=== PATIENT | male | born 1975 | race Caucasian/White ===

== ENCOUNTER 2017-07-15 16:00 | Inpatient (IN) | payer MEDICAID, OTHER ==
[~2017-07-15] VITALS: Ht 182.9 cm; Wt 72.6 kg
[~2017-07-15 16:00] MED LIST: FLUC100T PO; Glipizide PO; Lisinopril PO; Metformin Hcl PO
[2017-07-15] MEDS ORDERED: CEFEPIME HCL 2 G in IV DEXTROSE 5% 100 ML IV ONE (16:30)
[2017-07-15] MEDS ORDERED: VANCOMYCIN IV 1,000 MG in IV DEXTROSE 5% 250 ML IV ONE (16:30)
[2017-07-15] MEDS ORDERED: ONDANSETRON 4 MG/2 ML VIAL IV ONE (16:30)
[2017-07-15] MEDS ORDERED: METRONIDAZOLE 500 MG/NS 100 ML PIGGYBACK IV ONE (16:30)
[2017-07-15] MEDS ORDERED: IV NORMAL SALINE 1000 ML BAG IV ONE ×4 (16:30→17:45)
[2017-07-15] MEDS ORDERED: MORPHINE SULFATE 2 MG/1 ML DISP.SYRIN IV ONE (16:30)
[2017-07-15] MEDS ORDERED: ONDANSETRON 4 MG/2 ML VIAL ONE (16:41)
[2017-07-15] MEDS ORDERED: METRONIDAZOLE 500 MG/NS 100ML 100 ML IV ONE ×2 (16:41→23:47)
[2017-07-15] MEDS ORDERED: MORPHINE SULFATE 4 MG/1 ML DISP.SYRIN ONE (16:41)
[2017-07-15] MEDS ORDERED: CEFEPIME HCL 1 G VIAL ONE (16:41)
[2017-07-15] MEDS ORDERED: VANCOMYCIN IV 200 ML ONE (16:42)
[2017-07-15] MEDS ORDERED: ATOR20TA PO (16:56)
[2017-07-15] MEDS ORDERED: MULT-213 PO (16:56)
[2017-07-15] MEDS ORDERED: ASCO500T10 PO (16:56)
[2017-07-15] MEDS ORDERED: GLUC1KIT IJ (16:56)
[2017-07-15] MEDS ORDERED: POLY15DR57 EACHEYE (16:56)
[2017-07-15] MEDS ORDERED: DEXT38GE12 PO (16:56)
[2017-07-15] MEDS ORDERED: INSU100I26 SQ (16:56)
[2017-07-15] MEDS ORDERED: ACET325T53 PO (16:56)
[2017-07-15] MEDS ORDERED: SULF1TAB48 PO (16:56)
[2017-07-15] MEDS ORDERED: METF500T6 PO (16:56)
[2017-07-15] MEDS ORDERED: ALOG25TA PO (16:56)
[2017-07-15] MEDS ORDERED: SILV10PO2 MC (16:56)
[2017-07-15] MEDS ORDERED: BLOO-360 IN (16:56)
[2017-07-15] MEDS ORDERED: GABA-534 PO (16:56)
[2017-07-15] MEDS ORDERED: ONDA4TAB10 PO (16:56)
[2017-07-15 17:13] LABS: BASOPHILS # (AUTO) 0.1 K/uL (0.0-8.0); BASOPHILS % (AUTO) 0.8 % (0.0-2.0); EOSINOPHILS # (AUTO) 0.2 K/uL (0.0-0.7); EOSINOPHILS % (AUTO) 0.8 % (0.0-7.0); HEMATOCRIT 36.4 % (36.7-47.1); HEMOGLOBIN 12.2 g/dL (12.5-16.3); LYMPHOCYTES # (AUTO) 2.4 K/uL (20.0-40.0); LYMPHOCYTES % (AUTO) 13.4 % (20.5-51.5); MEAN CORPUSCULAR HEMOGLOBIN 28.7 uug (23.8-33.4); MEAN CORPUSCULAR HGB CONC 33 g/dL (32.5-36.3); MEAN CORPUSCULAR VOLUME 85.7 fL (73.0-96.2); MONOCYTES # (AUTO) 0.8 K/uL (2.0-10.0); MONOCYTES % (AUTO) 4.6 % (0.0-11.0); NEUTROPHILS # (AUTO) 14.6 K/uL (1.8-8.9); NEUTROPHILS % (AUTO) 80.4 % (38.5-71.5); PLATELET COUNT (AUTO) 399 K/uL (152-348); RED BLOOD CELL COUNT(AUTO) 4.24 MIL/uL (4.06-5.63); WHITE BLOOD COUNT (AUTO) 18.2 K/uL (3.6-10.2)
[2017-07-15 17:29] LABS: BILIRUBIN,DIRECT 0.1 mg/dL (0.0-0.2); BILIRUBIN,TOTAL 0.3 mg/dL (0.2-1.0); CREATININE 0.8 mg/dL (0.6-1.3); POTASSIUM 3.8 mmol/L (3.5-5.1); TOTAL PROTEIN, SERUM 8.3 g/dL (6.4-8.2)
--- NOTE | 2017-07-15 18:23 | NUR ---
CALLED DR. Kayla DINH FOR SURGICAL CONSULT
--- NOTE | 2017-07-15 18:37 | NUR ---
CALLED DR. WONG FOR SURGICAL CONSULT.
--- NOTE | 2017-07-15 18:42 | NUR ---
NEREIDA RAI CALLED BACK TALKING TO ER MD FOR SURGICAL CONSULT
--- NOTE | 2017-07-15 19:33 | NUR ---
hands of report given to leila godoy
--- NOTE | 2017-07-15 21:40 | NUR ---
Passed report to Beatris MORGAN CCU.
[2017-07-15 22:00] VITALS: BP 96/58
[2017-07-15] MEDS ORDERED: ACETAMINOPHEN 650 MG SUPP.RECT RC PRN (23:15)
[2017-07-15] MEDS: MORPHINE SULFATE 4 MG/1 ML DISP.SYRIN IV PRN (23:36)
[2017-07-15] MEDS ORDERED: PIPERACILLIN SODIUM/TAZO 3.375 GM VIAL ONE (23:46)
[2017-07-16] VITALS (8 sets, daily range): BP systolic 83–103; BP diastolic 42–63
[2017-07-16] MEDS: PIPERACILLIN/TAZOBACTAM/D5W 50 ML IV SCH ×4 (00:40→17:53)
[2017-07-16] MEDS ORDERED: PIPERACILLIN SODIUM/TAZO 3.375 GM VIAL ONE (00:58)
[2017-07-16] MEDS ORDERED: VANCOMYCIN 1000 MG VIAL ONE (00:58)
[2017-07-16] MEDS: POTASSIUM CHLORIDE 20 MEQ in IV D5/ 0.9% NACL 1,000 ML IV PRN ×2 (01:44→17:53)
[2017-07-16] MEDS ORDERED: VANCOMYCIN IV 1,000 MG in IV DEXTROSE 5% 250 ML IV ONE (03:00)
[2017-07-16] MEDS: METRONIDAZOLE 500 MG/NS 100ML 500 MG in PREMIXED 1 EACH IV SCH ×2 (05:18→14:48)
--- NOTE | 2017-07-16 06:00 | NUR ---
Patient refusing blood draw at this time. Will defer. As requested by patient, "later when I'm more awake"
--- NOTE | 2017-07-16 07:20 | NUR ---
report received from EDDIE Gutiérrez. patient 42 yr old male was admitted 07/15/17 for gangrenous right foot as LOBO patient. is full code despite POLST.. has hx of DKA. IV fluid D5NS plus 20meq kcl at 80ml/hr.. is NPO for possible surgery? Addendum: 07/16/17 at 0743 by JENNIFER MILLER RN Amended: Links added.
[2017-07-16] MEDS: FAMOTIDINE. 20 MG/2 ML VIAL IV SCH ×2 (08:16→21:09)
[2017-07-16] MEDS: MORPHINE SULFATE 4 MG/1 ML DISP.SYRIN IV PRN ×3 (08:17→21:15)
--- NOTE | 2017-07-16 08:17 | NUR ---
medicated for right foot pain scale /. blood drawn for routine Labs per labor utilization superintendent. Addendum: 07/16/17 at 0843 by JENNIFER MILLER RN Amended: Links added.
[2017-07-16 08:47] LABS: BASOPHILS % (AUTO) 0.3 % (0.0-2.0); EOSINOPHILS # (AUTO) 0.4 K/uL (0.0-0.7); EOSINOPHILS % (AUTO) 3.1 % (0.0-7.0); HEMATOCRIT 30.1 % (36.7-47.1); HEMOGLOBIN 10.3 g/dL (12.5-16.3); LYMPHOCYTES % (AUTO) 16.2 % (20.5-51.5); MEAN CORPUSCULAR HGB CONC 34 g/dL (32.5-36.3); MEAN CORPUSCULAR VOLUME 84.8 fL (73.0-96.2); NEUTROPHILS % (AUTO) 72.4 % (38.5-71.5); PLATELET COUNT (AUTO) 353 K/uL (152-348); RED BLOOD CELL COUNT(AUTO) 3.56 MIL/uL (4.06-5.63); WHITE BLOOD COUNT (AUTO) 12.4 K/uL (3.6-10.2)
[2017-07-16 09:04] LABS: ALANINE AMINOTRANSFERASE 12 U/L (16-63); ALKALINE PHOSPHATASE 168 U/L (50-136); ASPARTATE AMINOTRANSFERASE 10 U/L (15-37); BILIRUBIN,TOTAL 0.3 mg/dL (0.2-1.0); CARBON DIOXIDE 25 mmol/L (21-32); CHLORIDE 101 mmol/L (98-107); CREATININE 0.6 mg/dL (0.6-1.3); GLUCOSE 175 mg/dL (74-106); MAGNESIUM 1.7 mg/dL (1.8-2.4); PHOSPHOROUS 3.1 mg/dL (2.5-4.9); POTASSIUM 3.5 mmol/L (3.5-5.1); TOTAL PROTEIN, SERUM 6.7 g/dL (6.4-8.2); UREA NITROGEN, BLOOD 7 mg/dL (7-18)
--- NOTE | 2017-07-16 10:35 | NUR ---
seen by dr dahl. consent for amputation of th right toe signed by patient himself Addendum: 07/16/17 at 1035 by JENNIFER MILLER RN Amended: Links added.
[2017-07-16] MEDS ORDERED: FENTANYL CITRATE 100 MCG/2 ML AMPUL ONE (10:49)
[2017-07-16] MEDS ORDERED: MIDAZOLAM HCL 2 MG/2 ML VIAL ONE (10:49)
[2017-07-16] MEDS ORDERED: POLYMYXIN B SULFATE 500,000 UNITS, BACITRACIN 50,000 UNITS, NORMAL SALINE 20 ML MC ONE ×3 (11:00)
--- NOTE | 2017-07-16 11:10 | NUR ---
taken for OR for amputation of the right foot Addendum: 07/16/17 at 1110 by JENNIFER MILLER RN Amended: Links added.
[2017-07-16] MEDS ORDERED: VANCOMYCIN IV 1,250 MG in IV DEXTROSE 5% 500 ML IV SCH ×3 (12:00→23:00)
--- NOTE | 2017-07-16 13:39 | NUR ---
back to room, from PACU. s/p amputation of right foot. right leg stump all covered with dressing Addendum: 07/16/17 at 1340 by JENNFIER MILLER RN Amended: Links added.
[2017-07-16] MEDS ORDERED: SEVOFLURANE 250 ML BOTTLE IH ONE (14:20)
[2017-07-16] MEDS ORDERED: DEXAMETHASONE SOD PHOSPHATE 4 MG INJ IV ONE (14:20)
[2017-07-16] MEDS ORDERED: PROPOFOL 200 MG/20 ML BOTTLE IV ONE (14:20)
[2017-07-16] MEDS ORDERED: LIDOCAINE HCL 2% 20 ML VIAL MC ONE (14:20)
[2017-07-16] MEDS ORDERED: IV LACTATED RINGERS SOLUTION 1,000 ML BAG IV ONE (14:20)
[2017-07-16] MEDS ORDERED: ONDANSETRON 4 MG/2 ML VIAL IV ONE (14:20)
[2017-07-16] MEDS ORDERED: SILVER SULFADIAZINE 1% CREAM 25 GM TUBE TP SCH (15:15)
--- NOTE | 2017-07-16 15:39 | NUR ---
CLINICAL PHARMACY NOTE: VANCOMYCIN DOSING O: To start vancomycin dosing on 42 y/o male for osteomyelitis (waiting for MD note) S: temp 98.5 BUN 7 Scr 0.6 WBC 12.4 ht 182.8 cm wt 76.6 kg Plan/assessment Patient received vanco 1gm in ED on 07/15 at 1830 & also [facility] pharmacist ordered vanco 1gm x1 on 07/16 at 0300. Will start vanco 1250mg IV q8hr for predicted vanco trough level of 15 mcg/ml at steady state. 1st dose today at 1400. Plan to order vanco trough level before 4th dose (ordered for 07/17 at 1330). Will continue to follow.
--- NOTE | 2017-07-16 17:05 | NUR ---
complete bed bath given. medicated for right foot stump pain scale 7/10 Addendum: 07/16/17 at 1708 by JENNIFER MILLER RN Amended: Links added.
--- NOTE | 2017-07-16 18:45 | NUR ---
report given to Amrik MORGAN Patient as Med surg Status. to room 225 Addendum: 07/16/17 at 1943 by JENNIFER MILLER RN Amended: Links added.
--- NOTE | 2017-07-16 19:45 | NUR ---
Patient in bed, awake, alert and verbally responsive. A/O x3. RLE elevated a pillow. Dressing on surgical wound clean, dry, intact, no discharges noted. Vitals signs taken and recorded. No signs of any acute respi. distress. Pain level of 8/10. Persistent assessment done. Placed call lignt in reach. Will continue to monitor the patient.
[2017-07-16] MEDS: VANCOMYCIN IV 1,250 MG in IV DEXTROSE 5% 500 ML IV SCH (22:07)
[2017-07-17] MEDS: PIPERACILLIN/TAZOBACTAM/D5W 50 ML IV SCH ×4 (00:28→17:13)
[2017-07-17] MEDS: MORPHINE SULFATE 4 MG/1 ML DISP.SYRIN IV PRN ×5 (00:30→23:25)
[2017-07-17 05:40] VITALS: BP_SYST 1
[2017-07-17] MEDS: VANCOMYCIN IV 1,250 MG in IV DEXTROSE 5% 500 ML IV SCH (06:27)
--- NOTE | 2017-07-17 06:53 | NUR ---
Patient slept intermittently complaining of pain. Medicated with morphine injection. Vital signs taken and recorded. No signs of any acute respi. distress. Kept clean, dry and comfortable. All needs attended to. Will endorse to Am shift nurse.
--- NOTE | 2017-07-17 07:25 | NUR ---
Patient in bed, awake, alert and verbally responsive. A/O x3. RLE elevated a pillow. Dressing on surgical wound clean, dry, intact, no discharges noted. Vitals signs NORMAL No signs of any acute respiratory distress. Placed call light in reach. Will continue to monitor the patient.
[2017-07-17] MEDS: FAMOTIDINE. 20 MG/2 ML VIAL IV SCH (08:03)
[2017-07-17 08:27] LABS: THYROID STIMULATING HORMONE 0.673 mIU/mL (0.358-3.740)
[2017-07-17 08:28] LABS: BASOPHILS # (AUTO) 0.1 K/uL (0.0-8.0); BASOPHILS % (AUTO) 0.7 % (0.0-2.0); EOSINOPHILS # (AUTO) 0.1 K/uL (0.0-0.7); EOSINOPHILS % (AUTO) 1.3 % (0.0-7.0); HEMATOCRIT 32.6 % (36.7-47.1); LYMPHOCYTES # (AUTO) 2.3 K/uL (20.0-40.0); LYMPHOCYTES % (AUTO) 23.6 % (20.5-51.5); MEAN CORPUSCULAR HEMOGLOBIN 28.9 uug (23.8-33.4); MEAN CORPUSCULAR HGB CONC 34 g/dL (32.5-36.3); MEAN CORPUSCULAR VOLUME 85.5 fL (73.0-96.2); MONOCYTES # (AUTO) 0.9 K/uL (2.0-10.0); MONOCYTES % (AUTO) 8.8 % (0.0-11.0); NEUTROPHILS # (AUTO) 6.4 K/uL (1.8-8.9); NEUTROPHILS % (AUTO) 65.6 % (38.5-71.5); PLATELET COUNT (AUTO) 417 K/uL (152-348); RED BLOOD CELL COUNT(AUTO) 3.81 MIL/uL (4.06-5.63); WHITE BLOOD COUNT (AUTO) 9.8 K/uL (3.6-10.2)
[2017-07-17 08:44] LABS: BILIRUBIN,TOTAL 0.1 mg/dL (0.2-1.0); CREATININE 0.7 mg/dL (0.6-1.3); MAGNESIUM 1.8 mg/dL (1.8-2.4); PHOSPHOROUS 2.4 mg/dL (2.5-4.9); POTASSIUM 4.4 mmol/L (3.5-5.1); TOTAL PROTEIN, SERUM 6.7 g/dL (6.4-8.2)
[2017-07-17] MEDS ORDERED: ACETAMINOPHEN 325 MG TABLET PO PRN (09:00)
[2017-07-17 11:32] VITALS: BP 100/55
--- NOTE | 2017-07-17 14:09 | NUR ---
WOUND CARE CONSULT: PT PRESENTS WITH SACRAL SCARRING AND SURGICAL DRESSING TO RT LOWER EXTREMITY WHICH IS DRY AND INTACT. PT IS INDEPENDENT WITH BED MOBILITY AND SETH SCORE IS 17. FIRST STEP MATTRESS TO BE DCD. DISCUSSED SKIN PROTECTION WITH NURSING STAFF. WILL SEE PRN. DEFER TO SURGEON FOR SURGICAL SITE. MD IN AGREEMENT WITH PLAN OF CARE. Addendum: 07/17/17 at 1410 by JAY JAY CORBIN RN Amended: Links added.
[2017-07-17] MEDS: POTASSIUM CHLORIDE 20 MEQ in IV D5/ 0.9% NACL 1,000 ML IV PRN (15:19)
[2017-07-17] MEDS: VANCOMYCIN IV 1,500 MG in IV NORMAL SALINE 500 ML IV SCH ×2 (15:21→21:55)
[2017-07-17] MEDS ORDERED: NEUTRA PHOS PACKET PO ONE (15:30)
[2017-07-17 15:31] VITALS: BP 100/60
--- NOTE | 2017-07-17 16:05 | NUR ---
CLINICAL PHARMACY NOTE: VANCOMYCIN DOSING O: To continue vancomycin dosing on 42 y/o male for osteomyelitis S: temp 98.6 BUN 5 Scr 0.7 WBC 9.8 ht 182.8 cm wt 76.6 kg Vancomycin trough 10.8 Plan/assessment Since Vancomycin trough is under 15, will change dose to 1500mg IV every 7 hrs (first dose today at 1500) and draw trough by 4th dose(ordered for tomorrow at 1130) for expected trough around 17. Will monitor daily.
--- NOTE | 2017-07-17 19:25 | NUR ---
Pt AAOx4. Denies any pain or SOB. Not in acute distress. IV site on left FA intact and patent. IV fluid infusing. Safety measure initiated and call tavarez within reach.
--- NOTE | 2017-07-17 19:40 | NUR ---
Doctor Claire called with order to do wound culture on right foot stump. Order read back, verified and carried out.
[2017-07-17] MEDS: FAMOTIDINE 20 MG TABLET PO SCH (20:14)
[2017-07-17 20:38] VITALS: BP 100/57
--- NOTE | 2017-07-17 21:10 | NUR ---
Informed Doctor Raman regarding pt glucose level this morning. Doctor Raman with order to change IV fluids to NS at 80cc/hr. Order read back, verified and carried out.
[2017-07-17] MEDS ORDERED: IV NORMAL SALINE 100 ML BAG IV PRN (21:15)
[2017-07-18] MEDS ORDERED: DEXTROSE 50% 50 ML DISP.SYRIN IV PRN
[2017-07-18] MEDS: PIPERACILLIN/TAZOBACTAM/D5W 50 ML IV SCH ×4 (00:09→17:02)
[2017-07-18] MEDS: IV NS 1000 ML 1,000 ML IV PRN (00:35)
[2017-07-18] MEDS: MORPHINE SULFATE 4 MG/1 ML DISP.SYRIN IV PRN ×3 (03:15→22:16)
[2017-07-18] MEDS: VANCOMYCIN IV 1,500 MG in IV NORMAL SALINE 500 ML IV SCH ×3 (04:23→18:07)
--- NOTE | 2017-07-18 05:57 | NUR ---
AOx4. Morphine prn given per order for pain on right foot stump and helpful. Dressing on right foot stump remains intact. Denies any SOB. Not in acute distress. IV site on left FA intact and patent. IVF infusing. Safety measure maintained and call tavarez within reach.
[2017-07-18] MEDS: BLOOD SUGAR DIAGNOSTIC 1 EACH STRIP VI SCH ×4 (06:35→21:00)
[2017-07-18 06:38] LABS: CARBON DIOXIDE 30 mmol/L (21-32); CHLORIDE 103 mmol/L (98-107); CREATININE 0.6 mg/dL (0.6-1.3); GLUCOSE 135 mg/dL (74-106); PHOSPHOROUS 3.4 mg/dL (2.5-4.9); POTASSIUM 3.9 mmol/L (3.5-5.1); UREA NITROGEN, BLOOD 6 mg/dL (7-18)
[2017-07-18 06:44] VITALS: BP 104/64
[2017-07-18] MEDS: FAMOTIDINE 20 MG TABLET PO SCH ×2 (08:03→21:37)
[2017-07-18] MEDS: INSULIN REGULAR, HUMAN 300 UNIT/3 ML VIAL SQ PRN ×2 (10:57→17:00)
[2017-07-18 11:13] VITALS: BP 100/63
[2017-07-18 11:22] LABS: *BILIRUBIN,URIN NEGATIVE (NEGATIVE); *BLOOD, URINE NEGATIVE (NEGATIVE); *CLARITY,URINE CLEAR (CLEAR); *COLOR,URINE YELLOW (YELLOW); *KETONES,URINE NEGATIVE (NEGATIVE); *PROTEIN,URINE NEGATIVE (NEGATIVE); *UROBILINOGEN,URINE 0.2 E.U./dl (NORMAL); LEUKOCYTE ESTERASE ,URINE NEGATIVE (NEGATIVE); NITRITE, URINE NEGATIVE (NEGATIVE); PH,URINE 5.5 (5.0-8.0); UGLUCOSE NEGATIVE (NEGATIVE)
[2017-07-18 11:32] LABS: BACTERIA,URINE NONE SEEN /HPF (NONE SEEN); RBC,URINE 0-3 /HPF (0-3); SQUAMOUS EPITHELIAL CELL,UR FEW /HPF (NONE SEEN); WBC,URINE 0-3 /HPF (0-3)
--- NOTE | 2017-07-18 13:31 | NUR ---
CLINICAL PHARMACY NOTE: VANCOMYCIN DOSING O: To continue vancomycin dosing on 42 y/o male for osteomyelitis S: temp 97.9 BUN 6 Scr 0.6 WBC 9.8 (07/17) ht 182.8 cm wt 76.6 kg Vancomycin trough 17.7 Plan/assessment Since Vancomycin trough is within therapeutic range, will continue same dose of vanco 1500mg IV every 7 hrs. Next dose is due today at noon. Will monitor renal function. Will monitor daily.
--- NOTE | 2017-07-18 15:23 | NUR ---
Patient is 42 y/o male with pmh of DM with diabetic foot ulcer who presents with worsened foot ulcer , s/p foot amputation current wt is 165lb, BMI 22.4, amputation ideal body weight: Foot 1.5%= IBW amputation:175lb,pt is 94% IBW(amputation) kcal: 25-28 (cbw):3639-6309 kcal/kg protein:1.1-1.3 gm/k-97 gm/kg fluid:25-30 ml/k-2100ml/kg po intake is good, eating 75-100% of meals labs; BUN-6(L),GLUCOSE-135(H) was 355(h),poc-145(h),QCW6V-8.4(H) medication:vancomycin ivf, skin; surgical amputation right foot bowel sound present x1 nutrition diagnosis: altered nutrition labs related to DM,current clinical condition as evidenced by above labs spoke with the nurse, per RN diet has been change to standard [facility] diet. if blood sugar continue to tend up rec modify insulin regimen per MD/PharmD monitor:weight,po intake,new labs Addendum: 07/18/17 at [address] Amended: Links added.
[2017-07-18 15:24] VITALS: BP 105/67
[2017-07-18] MEDS: HYDROCODONE/APAP 5-325MG TABLET PO PRN (16:33)
[2017-07-18 20:00] VITALS: BP 109/70
[2017-07-19] MEDS: PIPERACILLIN/TAZOBACTAM/D5W 50 ML IV SCH ×4 (00:01→18:00)
[2017-07-19] MEDS: IV NS 1000 ML 1,000 ML IV PRN (00:01)
[2017-07-19] MEDS: VANCOMYCIN IV 1,500 MG in IV NORMAL SALINE 500 ML IV SCH ×4 (02:58→22:52)
[2017-07-19] MEDS: MORPHINE SULFATE 4 MG/1 ML DISP.SYRIN IV PRN ×3 (03:18→14:47)
[2017-07-19 04:51] VITALS: BP 137/84
[2017-07-19] MEDS: BLOOD SUGAR DIAGNOSTIC 1 EACH STRIP VI SCH ×4 (06:29→20:48)
[2017-07-19 06:30] LABS: BASOPHILS # (AUTO) 0.1 K/uL (0.0-8.0); BASOPHILS % (AUTO) 0.5 % (0.0-2.0); EOSINOPHILS # (AUTO) 0.2 K/uL (0.0-0.7); EOSINOPHILS % (AUTO) 1.4 % (0.0-7.0); HEMATOCRIT 35.3 % (36.7-47.1); HEMOGLOBIN 12.1 g/dL (12.5-16.3); LYMPHOCYTES # (AUTO) 2.8 K/uL (20.0-40.0); LYMPHOCYTES % (AUTO) 24.5 % (20.5-51.5); MEAN CORPUSCULAR HGB CONC 34 g/dL (32.5-36.3); MEAN CORPUSCULAR VOLUME 84.5 fL (73.0-96.2); MONOCYTES # (AUTO) 0.6 K/uL (2.0-10.0); MONOCYTES % (AUTO) 5.6 % (0.0-11.0); NEUTROPHILS # (AUTO) 7.6 K/uL (1.8-8.9); PLATELET COUNT (AUTO) 618 K/uL (152-348); RED BLOOD CELL COUNT(AUTO) 4.18 MIL/uL (4.06-5.63); WHITE BLOOD COUNT (AUTO) 11.2 K/uL (3.6-10.2)
[2017-07-19 06:34] LABS: CREATININE 0.7 mg/dL (0.6-1.3); MAGNESIUM 1.7 mg/dL (1.8-2.4); PHOSPHOROUS 3.5 mg/dL (2.5-4.9); POTASSIUM 3.2 mmol/L (3.5-5.1)
[2017-07-19] MEDS: INSULIN REGULAR, HUMAN 300 UNIT/3 ML VIAL SQ PRN ×5 (07:51→21:29)
[2017-07-19] MEDS: FAMOTIDINE 20 MG TABLET PO SCH ×2 (08:34→20:44)
[2017-07-19] MEDS: HYDROCODONE/APAP 5-325MG TABLET PO PRN ×2 (09:54→20:51)
--- NOTE | 2017-07-19 10:30 | NUR ---
PT SEEN BY DR WATKINS
[2017-07-19] MEDS ORDERED: POTASSIUM CHLORIDE 20 MEQ TAB.PRT.SR PO ONE (12:00)
[2017-07-19] MEDS ORDERED: MAGNESIUM OXIDE 400 MG TABLET PO ONE (12:00)
[2017-07-19 12:59] VITALS: BP 125/88
--- NOTE | 2017-07-19 15:00 | NUR ---
PT IS GRANT YELLING AT NURSING STAFF SAYING HE WANTS TO TALK TO THE JEANNA MOTHER AT BED SIDE MADE AWARE.
--- NOTE | 2017-07-19 15:19 | NUR ---
CLINICAL PHARMACY NOTE: VANCOMYCIN DOSING O: To continue vancomycin dosing on 42 y/o male for osteomyelitis S: temp 98.4 BUN 7 Scr 0.7 WBC 11.2 ht 182.8 cm wt 76.6 kg Vancomycin trough 17.7 Plan/assessment Will continue same dose of vanco 1500mg IV every 7 hrs. 9th dose is due tonight at 2300. Will monitor renal function. Will monitor daily.
--- NOTE | 2017-07-19 15:39 | NUR ---
PER NURSING VP [employer]ATE [employer]ELOPMENT SCOOBY, CHARGE NURSE MO, AND RN KIMBERLYN THEY SPOKE WITH AMANDA ON SPEAKER PHONE REGARDING THE AMPUTATED FOOT ,THEY BOTH SAID THEY DO NOT WANT ANY THING WITH AMPUTATED FOOT
[2017-07-19 15:57] VITALS: BP 131/82
[2017-07-20] VITALS (8 sets, daily range): BP systolic 114–132; BP diastolic 69–83
[2017-07-20] MEDS: PIPERACILLIN/TAZOBACTAM/D5W 50 ML IV SCH ×4 (00:20→17:00)
[2017-07-20] MEDS: HYDROCODONE/APAP 5-325MG TABLET PO PRN ×2 (03:28→16:51)
--- NOTE | 2017-07-20 05:44 | NUR ---
Pt slept intermittently throughout the night, and aware of NPO order after midnight for surgery. No distress noted at this time. All meds administered as ordered. Kept right leg elevated via pillows throughout the night. Pain management provided. Call light within reach.
[2017-07-20] MEDS: VANCOMYCIN IV 1,500 MG in IV NORMAL SALINE 500 ML IV SCH ×2 (06:05→13:00)
[2017-07-20] MEDS: BLOOD SUGAR DIAGNOSTIC 1 EACH STRIP VI SCH ×4 (06:16→21:22)
[2017-07-20 06:41] LABS: BASOPHILS # (AUTO) 0.1 K/uL (0.0-8.0); BASOPHILS % (AUTO) 0.8 % (0.0-2.0); EOSINOPHILS # (AUTO) 0.2 K/uL (0.0-0.7); EOSINOPHILS % (AUTO) 1.4 % (0.0-7.0); HEMATOCRIT 35.4 % (36.7-47.1); HEMOGLOBIN 11.8 g/dL (12.5-16.3); LYMPHOCYTES % (AUTO) 16.3 % (20.5-51.5); MEAN CORPUSCULAR HEMOGLOBIN 28.5 uug (23.8-33.4); MEAN CORPUSCULAR HGB CONC 33 g/dL (32.5-36.3); MEAN CORPUSCULAR VOLUME 85.2 fL (73.0-96.2); MONOCYTES % (AUTO) 8.4 % (0.0-11.0); NEUTROPHILS % (AUTO) 73.1 % (38.5-71.5); PLATELET COUNT (AUTO) 730 K/uL (152-348); RED BLOOD CELL COUNT(AUTO) 4.15 MIL/uL (4.06-5.63); WHITE BLOOD COUNT (AUTO) 12.3 K/uL (3.6-10.2)
--- NOTE | 2017-07-20 06:41 | NUR ---
Per patient, he will sign informed consent when his questions are clarified by Dr. Batista.
[2017-07-20 06:49] LABS: CREATININE 0.9 mg/dL (0.6-1.3); MAGNESIUM 1.8 mg/dL (1.8-2.4); PHOSPHOROUS 4.2 mg/dL (2.5-4.9); POTASSIUM 3.6 mmol/L (3.5-5.1)
[2017-07-20] MEDS: INSULIN REGULAR, HUMAN 300 UNIT/3 ML VIAL SQ PRN ×4 (07:14→21:21)
--- NOTE | 2017-07-20 07:30 | NUR ---
RECEIVED PATIENT SITTING AT THE EDGE OF THE BED AWAKE ALERT AND ORIENTED STATED THAT HE WILL NOT SIGN THE CONSCENT FOR HIS SURGERY UNTIL HE TALKS TO THE SURGEON CALLED THE OPERATING ROOM AND MESSAGE LEFT.
[2017-07-20] MEDS ORDERED: POLYMYXIN B SULFATE 500,000 UNITS, BACITRACIN 50,000 UNITS, NORMAL SALINE 20 ML MC ONE ×3 (08:45)
[2017-07-20] MEDS: FAMOTIDINE 20 MG TABLET PO SCH ×2 (08:45→21:23)
--- NOTE | 2017-07-20 08:54 | NUR ---
PATIENT PICKED UP BY BED TO THE OPERATING ROOM ORDERED IN SATISFACTORY CONDITION AND THE OR NURSES THAT PICKED HIM UP AWARE THAT THE PATIENT DID NOT SIGN THE CONSCENT YET AND THEY STATED THAT THEY WILL INFORM THE DOCTOR.
[2017-07-20] MEDS ORDERED: FENTANYL CITRATE 100 MCG/2 ML AMPUL ONE (09:16)
[2017-07-20] MEDS ORDERED: MIDAZOLAM HCL 2 MG/2 ML VIAL ONE (09:17)
[2017-07-20] MEDS ORDERED: EPHEDRINE SULFATE 50 MG/ML AMPUL ONE (10:27)
[2017-07-20] MEDS ORDERED: IV LACTATED RINGERS SOLUTION 1,000 ML IV PRN (11:15)
--- NOTE | 2017-07-20 11:35 | NUR ---
PATIENT RETURNED BACK TO HIS ROOM BY BED AWAKE ALERT AND ORIENTED ON ROOM AIR WITH RIGHT STUMP WRAPPED WITH BULKY DRESSING WITH FAINA WRAP C/D/I ELEVATED ON THE PILLOW PATIENT DENIES PAIN OR DISCOMFORTS AT THIS TIME MADE COMFORTABLE AND WILL OBSERVE.
[2017-07-20] MEDS: IV NS 1000 ML 1,000 ML IV PRN (12:22)
--- NOTE | 2017-07-20 13:05 | NUR ---
VANCO LEVEL IS 30.8 VANCOMICIN NOT GIVEN AT THIS TIME
--- NOTE | 2017-07-20 15:16 | NUR ---
CLINICAL PHARMACY NOTE: VANCOMYCIN DOSING O: To continue vancomycin dosing on 42 y/o male for osteomyelitis S: temp 98.7 BUN 9 Scr 0.9 WBC 12.3 ht 182.8 cm wt 76.6 kg Vancomycin trough 17.7 (07/08) Vanco trough repeat 30.8 (today @1230) Plan/assessment As patient's Scr increased since last trough from 0.6 to 0.9 today, repeated trough before next scheduled dose at 1300. Level was supratherapeutic, thus d/c'd regimen of 1500mg q7hr and ordered random level for 1729 before pharmacy closes. (If level comes back around 19 or lower, will consider starting new adjusted regimen of 1gm q8h and check Scr in am.). Will check random later and adjust as necessary Addendum: 07/20/17 at 1849 by MOR FLORES ADM VANCOMYCIN RANDOM LEVEL @ 17:30 21.7 WILL HOLD VANCOMYCIN DOSE FOR TONIGHT AND RE-ORDER VANCOMYCIN RANDOM LEVEL IN AM AND FOLLOW UP
--- NOTE | 2017-07-20 16:30 | NUR ---
PATIENT INFORMED THE NURSE THAT HE WANTED TO GET INTO THE W/CHAIR AND GO DOWN STAIRS TO SMOKE INFORMED HIM THAT HE CANNOT GET INTO THE W/CHAIR BECAUSE HIS RIGHT STUMP HAS TO BE ELEVATED ON [address] BARRIOS STATED OKAY AT THIS TIME.
--- NOTE | 2017-07-20 18:27 | NUR ---
PATIENT MEDICATED ORALLY WITH NORCO FOR PAIN ORDERED AND WILL CONTINUE TO OBSERVE.
[2017-07-20] MEDS: MORPHINE SULFATE 4 MG/1 ML DISP.SYRIN IV PRN (21:22)
[2017-07-20] MEDS: LACTOBACILLUS RHAMNOSUS GG 1 EACH CAPSULE PO SCH (21:23)
[2017-07-21] MEDS: PIPERACILLIN/TAZOBACTAM/D5W 50 ML IV SCH ×4 (00:45→17:10)
[2017-07-21] MEDS: MORPHINE SULFATE 4 MG/1 ML DISP.SYRIN IV PRN ×6 (00:46→23:24)
[2017-07-21 06:02] VITALS: BP 105/58
[2017-07-21 06:14] LABS: HEMATOCRIT 30.6 % (36.7-47.1); HEMOGLOBIN 10.4 g/dL (12.5-16.3)
[2017-07-21] MEDS: BLOOD SUGAR DIAGNOSTIC 1 EACH STRIP VI SCH ×4 (06:34→20:34)
--- NOTE | 2017-07-21 07:45 | NUR ---
IN BED AWAKE ALERT AND ORIENTED WITH IVF IN PROGRESS ORDERED WITH ANTIBIOTICS WITH NO S/S OF INFILTERATION OR ADVERSE EFFECTS.RIGHT LEG STUMP ELEVATED ON 2 PILLOWS C/D/I AT THIS TIME.WILL CONTINUE TO OBSERVE.
[2017-07-21] MEDS: INSULIN REGULAR, HUMAN 300 UNIT/3 ML VIAL SQ PRN ×2 (07:53→16:33)
[2017-07-21] MEDS: FAMOTIDINE 20 MG TABLET PO SCH ×2 (08:56→20:31)
[2017-07-21] MEDS: LACTOBACILLUS RHAMNOSUS GG 1 EACH CAPSULE PO SCH ×2 (08:56→20:31)
--- NOTE | 2017-07-21 09:00 | NUR ---
SPECIMEN HAT PLACED IN THE PATIENTS TOILET AND PATIENT INSTRUCTED THAT HIS DOCTOR ORDERED STOOL SPECIMEN SINCE HE WAS COMPLAINING OF HAVING DIARRHEA PATIENT INSTRUCTED AND HE STATED THAT HE UNDERSTANDS.
[2017-07-21 11:16] VITALS: BP 113/71
--- NOTE | 2017-07-21 11:36 | NUR ---
PATIENT IS SEEN STANDING AT THE DOOR WAY ON A WALKER WITH HIS RIGHT STUP DANGLING PATIENT ENCOURAGED TO GET BACK INTO BED AND ELEVATE HIS STUMP ORDERED PATIENT IS VERY ARGUMENTATIVE REFUSING TO GET BACK INTO THE BED FOR A WHILE HIS MOTHER IS AT THE BEDSIDE AND ASSISTING ME IN ASKING THE PATIENT TO GET INTO BED ELEVATE HIS STUMP ORDERED AFTER SOME MINUTES OF ARGUING AND CURSING OUT USING BAD LANGUAGES PATIENT FINALLY GOT INTO BED HIS IV RECONNECTED AND MEDICATIONS FOR PAIN GIVEN HE STATED THAT HE WAS IN SO MUCH PAIN.WILL CONTINUE TO OBSERVE AND EDUCATE PATIENT NEEDED.
--- NOTE | 2017-07-21 14:00 | NUR ---
NOTED THAT PATIENT REMOVED THE SPECIMEN HAT FROM THE TOILET AND STATED THAT HE WILL NOT PROVIDE THE STOOL SPECIMEN EXPLAINED TO HIM THAT IT WAS BECAUSE HE HAD STATED TO THE MARINE SURVEYOR LAST NITE THAT HE WAS HAVING DIARRHEA.HIS DIARRHEA WAS NOT OBSERVED OR SEEN BY ANY OF THE NURSES.
--- NOTE | 2017-07-21 15:00 | NUR ---
FIRE ALARM ATIVATED FOR ROOM 225 PATIENT DENIES SMOKING BUT A RN ELIGIBILITY WAS FOUND IN HIS ROOM HIS MOTHER IS IN THE ROOM BUT SHE DENIES SEEING HIM SMOKING.PATIENT INSTRUCTED ON THE DANGER OF SMOKING IN THE ROOM AND POSSIBILITY OF STARTING A FIRE IN THE HOSPITAL AND HE STILL UNABLE TO COMPREHEND THE CONCEPT AT THIS TIME.
[2017-07-21 15:34] VITALS: BP 126/81
--- NOTE | 2017-07-21 16:01 | NUR ---
DR WONG HERE TO SEE PATIENT AND HE CHANGED THE DRESSING ON HIS RIGHT STUMP WITH XEROFORM GAUZE KIRLIX AND FAINA BANDAGE WITH RUSLAN INTACT WITH NO DRAINAGE OR REDNESS STATED THAT DRESSING SHOULD NOT BE REMOVED OR CHANGED STATED THAT THE PATIENT SHOULD MAKE AN APPOINTMENT TO FOLLOW UP WITH HIM AT HIS OFFICE IN 10 DAYS. WAS NOTIFIED THAT PATIENT IS NON COMPLIANT STANDING ON WALKERS NOT ELEVATING HIS RIGHT STUMP ORDERED AND WAS CAUGHT SMOKING IN HIS ROOM WITH THE FIRE ALARM ACTIVATED.MD SPOKE WITH PATIENT TO KEEP HIS RIGHT STUMP ELEVATED TO DO NOT SMOKE AND OFFERED HIM NICOTINE PATCH AND HE REFUSED WILL CONTINUE TO OBSERVE AND EDUCATE PATIENT.
[2017-07-21] MEDS: IV NS 1000 ML 1,000 ML IV PRN (16:42)
--- NOTE | 2017-07-21 19:25 | NUR ---
RECEIVED PT AWAKE, ALERT AND ORIENTEDX4. PT IV INTACT AND PATENT. PT COMPLAINT OF PAIN. CALL LIGHT WITHIN REACH.BED ALARM ON AND IN LOW POSITION.WILL CONTINUE TO MONITOR.
[2017-07-21] MEDS: INSULIN GLARGINE,HUM 300 UNITS/3 ML CARTRIDGE SQ SCH (20:34)
[2017-07-21 20:51] VITALS: BP 115/82
[2017-07-22 05:28] VITALS: BP 99/48
[2017-07-22] MEDS: MORPHINE SULFATE 4 MG/1 ML DISP.SYRIN IV PRN ×4 (05:31→21:23)
--- NOTE | 2017-07-22 06:28 | NUR ---
PT SLEPT THROUGHOUT THE SHIFT. PT GIVEN PAIN MANAGEMENT.PT IV INTACT AND PATENT.NO SIGNS OF DISTRESS. PRESCRIBED MEDICATION GIVEN.PT TOLERATED IT WELL.CALL LIGHT WITHIN REACH.BED ALARM ON AND IN LOW POSITION.WILL ENDORSE TO DAYSHIFT NURSE.
[2017-07-22] MEDS: BLOOD SUGAR DIAGNOSTIC 1 EACH STRIP VI SCH ×4 (07:23→21:04)
--- NOTE | 2017-07-22 07:24 | NUR ---
PT REFUSED TO LET ME TAKE HIS BLOOD SUGAR OR ACCUCHEK. I ATTEMPTED MANY TIMES. PT ALSO DOESN'T WANT TO BE HOOK IN HIS IV. ATTEMTED MANY TIMES ALSO BUT STILL REFUSING.PT IN GOOD CONDITION. WILL ENDORSE TO DAYSHIFT NURSE.
--- NOTE | 2017-07-22 07:45 | NUR ---
PER REPORT PATIENT HAS REFUSED TO HAVE HIS BLOOD SUGAR CHECKED BY THE NOC RN SO I OFFERED TO CHECK IT AT THIS TIME THE PATIENT REFUSED GOT ANGRY AND STATED DONT YOU UNDERSTAND I DO NOT WANT MY BLOOD SUGAR CHECKED PATIENTS RIGHT TO REFUSE RESPECTED.WILL CONTINUE TO OBSERVE.
[2017-07-22] MEDS: FAMOTIDINE 20 MG TABLET PO SCH ×2 (08:22→21:01)
[2017-07-22] MEDS: LACTOBACILLUS RHAMNOSUS GG 1 EACH CAPSULE PO SCH ×2 (08:22→21:01)
[2017-07-22 08:25] LABS: BASOPHILS # (AUTO) 0.1 K/uL (0.0-8.0); BASOPHILS % (AUTO) 0.6 % (0.0-2.0); EOSINOPHILS # (AUTO) 0.2 K/uL (0.0-0.7); EOSINOPHILS % (AUTO) 2.1 % (0.0-7.0); HEMATOCRIT 32.1 % (36.7-47.1); HEMOGLOBIN 10.8 g/dL (12.5-16.3); LYMPHOCYTES # (AUTO) 2.1 K/uL (20.0-40.0); LYMPHOCYTES % (AUTO) 20.6 % (20.5-51.5); MEAN CORPUSCULAR HGB CONC 34 g/dL (32.5-36.3); MEAN CORPUSCULAR VOLUME 86.3 fL (73.0-96.2); MONOCYTES # (AUTO) 0.7 K/uL (2.0-10.0); MONOCYTES % (AUTO) 6.9 % (0.0-11.0); NEUTROPHILS # (AUTO) 7.1 K/uL (1.8-8.9); NEUTROPHILS % (AUTO) 69.8 % (38.5-71.5); PLATELET COUNT (AUTO) 739 K/uL (152-348); RED BLOOD CELL COUNT(AUTO) 3.72 MIL/uL (4.06-5.63); WHITE BLOOD COUNT (AUTO) 10.1 K/uL (3.6-10.2)
[2017-07-22 08:49] LABS: CREATININE 0.8 mg/dL (0.6-1.3); MAGNESIUM 1.9 mg/dL (1.8-2.4); PHOSPHOROUS 3.4 mg/dL (2.5-4.9); POTASSIUM 4.2 mmol/L (3.5-5.1)
--- NOTE | 2017-07-22 09:00 | NUR ---
PATIENTS IVF REMAINS OFF AT THIS TIME PATIENT CONTINUES TO REFUSE TO HAVE HIS IVF CONNECTED EXPLAINED TO THE PATIENT THE BENEFITS OF THE IVF AND FOLLOWING THE DOCTORS ORDERS AND HE STATED I DONT CARE DOES NOT WANT THE FLUID CONNECTED.PATIENT ENCOURAGED TO AT LEAST DRINK FLUIDS MUCH POSSIBLE.
--- NOTE | 2017-07-22 11:20 | NUR ---
PATIENT IS VERBALLY ABUSIVE YELLING AND SCREAMING AT THIS WRITTER USING LOTS OF FOUL INAPPROPRIATE WORDS WHEN I WALKED IN TO CHECK HIS BLOOD SUGAR AND A MATTER OF FACT WHEN I CAME INTO THE ROOM HIS EYES WERE CLOSED AND WHEN I WOKE HIM UP HE THEN STARTED TO YELL THAT HE WAS IN PAIN I HAVE BEEN IN HIS ROOM SO MANY TIMES TO CHECK ON HIM AND HE HAS HIS EYES CLOSED SEEMS COMFORTABLE SO I DID NOT WAKE HIM UP SO I REASSURED HIM THAT I WILL GIVE HIM HIS PAIN MEDICATION ORDERED.
--- NOTE | 2017-07-22 11:25 | NUR ---
HIS PAIN MEDICATION GIVEN ORDERED AND PATIENT STATED THAT EVEN THOUGH HIS EYES ARE CLOSED HE SHOULD BE WOKEN UP AND HIS PAIN MEDICATIONS GIVEN TO ROUTINELY AROUND THE CLOCK REGARDLESS IF HE IS SLEEPING.INFORMED HIM THAT HIS ORDER IS NEEDED FOR PAIN STATED THAT IT DOSE NOT MATTER.
[2017-07-22 11:54] VITALS: BP 102/58
[2017-07-22] MEDS: INSULIN REGULAR, HUMAN 300 UNIT/3 ML VIAL SQ PRN ×2 (12:29→21:03)
[2017-07-22 15:21] VITALS: BP 97/55
--- NOTE | 2017-07-22 17:30 | NUR ---
I WAS NOTIFIED THAT PATIENT WANTED HIS PAIN MEDICATIONS WHEN I WENT TO GIVE IT TO HIM PATIENT IS ASLEEP AND HE IMMEDIATELY WOKE UP AND I NOTIFIED HIM THAT I WILL BE ADMINISTERING HIS PAIN MEDICATION AND HE STATED DO IT ALREADY YOU SHOULD NOT EVEN ASK.PATIENT CONTINUES TO REFUSE HIS IV FLUIDS RESTARTED ALL DAY MESSAGE WAS LEFT FOR DR JASMINE RE PATIENTS REFUSAL FOR HIS IV FLUIDS.
--- NOTE | 2017-07-22 19:20 | NUR ---
RECEIVED PT AWAKE, ALERT, ORIENTEDX4. PT IV INTACT. PT NOT HOOK IN HIS IV FLUIDS . I ASKED HIM THAT I'M GOING TO RECONNECT THE IV. PT REFUSE TO BE RECONNECTED WITH IV FLUIDS.CALL LIGHT WITHIN REACH. BED ALARM ON. WILL CONTINUE TO MONITOR.
[2017-07-22 20:28] VITALS: BP 99/53
[2017-07-22] MEDS: INSULIN GLARGINE,HUM 300 UNITS/3 ML CARTRIDGE SQ SCH (21:02)
[2017-07-23] MEDS: MORPHINE SULFATE 4 MG/1 ML DISP.SYRIN IV PRN ×4 (01:48→16:31)
[2017-07-23 06:23] VITALS: BP 110/56
--- NOTE | 2017-07-23 06:24 | NUR ---
PT SLEPT THROUGHOUT THE SHIFT. PT SHOWS NO SIGNS OF DISTRESS. PT IV INTACT AND PATENT. PT STABLE. PAIN MANAGEMENT PROVIDED.PRESCRIBED MEDICATION GIVEN.PT TOLERATED IT WELL.CALL LIGHT WITHIN REACH. BED ALARM ON AND IN LOW POSITION. SAFETY AND COMFORT PROVIDED. CONTINUE CARE OF PLAN. WILL ENDORSE TO DAYSHIFT NURSE.
[2017-07-23] MEDS: BLOOD SUGAR DIAGNOSTIC 1 EACH STRIP VI SCH ×4 (07:38→21:01)
--- NOTE | 2017-07-23 08:00 | NUR ---
RESTING WELL NO SOB OR PAIN ON FALL PRECAUTION BED ALARM ON AND CALL LIGHT IN REACH
[2017-07-23] MEDS: FAMOTIDINE 20 MG TABLET PO SCH ×2 (09:20→20:05)
[2017-07-23] MEDS: INSULIN REGULAR, HUMAN 300 UNIT/3 ML VIAL SQ PRN ×3 (09:22→21:04)
[2017-07-23] MEDS: LACTOBACILLUS RHAMNOSUS GG 1 EACH CAPSULE PO SCH ×2 (09:59→20:05)
[2017-07-23 11:05] VITALS: BP 100/57
--- NOTE | 2017-07-23 15:00 | NUR ---
LIBBY FARIAS WAS INFORM OF BED AVAILABLE AT [facility] TODAY AND NEED D/C ORDER
[2017-07-23 15:15] VITALS: BP 102/48
--- NOTE | 2017-07-23 16:00 | NUR ---
D/C INSTRUCTION TO [facility] EXPLAINED REGARDING F/U WITH MD AND CONTINUE HOME MEDICINE ORDER EDUCATION PK GIVEN ,VERBALIZES UNDERSTAND
[2017-07-23 19:26] VITALS: BP 97/53
--- NOTE | 2017-07-23 20:00 | NUR ---
RECEIVED PATIENT AWAKE IN BED. A/O X4. EASILY AGITATED AND HOSTILE TOWARDS STAFF AT TIMES. 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 PATIENT BECAME EASILY AGITATED AND UPSET BUT THEN VERBALIZED UNDERSTANDING. VSS. NO C/O PAIN AT THIS TIME. NO RESP. DISTRESS NOTED. H/L INTACT AND PATENT. PATIENT IS REFUSING IVF. MD AWARE. CALL LIGHT IN REACH. ALL NEEDS ATTENDED. WILL CONTINUE TO MONITOR.
[2017-07-23] MEDS: HYDROCODONE/APAP 5-325MG TABLET PO PRN (21:02)
[2017-07-23] MEDS: INSULIN GLARGINE,HUM 300 UNITS/3 ML CARTRIDGE SQ SCH (21:03)
[2017-07-24] MEDS: MORPHINE SULFATE 4 MG/1 ML DISP.SYRIN IV PRN (00:29)
--- NOTE | 2017-07-24 04:20 | NUR ---
PATIENT REFUSED AM VITALS.
[2017-07-24] MEDS: HYDROCODONE/APAP 5-325MG TABLET PO PRN ×2 (05:34→10:02)
--- NOTE | 2017-07-24 06:00 | NUR ---
PATIENT REFUSED PICTURES.
--- NOTE | 2017-07-24 06:10 | NUR ---
PATIENT AWAKE IN BED. CONTINUES TO YELL AT STAFF AND VERY HOSTILE WHEN APPROACHED. PATIENT EDUCATED AND INFORMED IMPORTANCE OF VITALS. PATIENT YELLED AT STAFF AND CONTINUED TO REFUSED FOR VITALS TO BE TAKEN. ALL NEEDS ATTENDED. WILL CONTINUE TO MONITOR.
[2017-07-24] MEDS: BLOOD SUGAR DIAGNOSTIC 1 EACH STRIP VI SCH ×3 (06:32→16:05)
[2017-07-24 06:39] LABS: BASOPHILS # (AUTO) 0.1 K/uL (0.0-8.0); EOSINOPHILS # (AUTO) 0.2 K/uL (0.0-0.7); EOSINOPHILS % (AUTO) 1.9 % (0.0-7.0); HEMATOCRIT 33.9 % (36.7-47.1); HEMOGLOBIN 11.3 g/dL (12.5-16.3); LYMPHOCYTES # (AUTO) 2.3 K/uL (20.0-40.0); LYMPHOCYTES % (AUTO) 24.6 % (20.5-51.5); MEAN CORPUSCULAR HEMOGLOBIN 28.8 uug (23.8-33.4); MEAN CORPUSCULAR HGB CONC 34 g/dL (32.5-36.3); MONOCYTES # (AUTO) 0.6 K/uL (2.0-10.0); MONOCYTES % (AUTO) 6.1 % (0.0-11.0); NEUTROPHILS # (AUTO) 6.2 K/uL (1.8-8.9); NEUTROPHILS % (AUTO) 66.4 % (38.5-71.5); PLATELET COUNT (AUTO) 802 K/uL (152-348); RED BLOOD CELL COUNT(AUTO) 3.94 MIL/uL (4.06-5.63); WHITE BLOOD COUNT (AUTO) 9.3 K/uL (3.6-10.2)
[2017-07-24 06:54] LABS: BILIRUBIN,TOTAL 0.2 mg/dL (0.2-1.0); CREATININE 0.7 mg/dL (0.6-1.3); POTASSIUM 4.2 mmol/L (3.5-5.1); TOTAL PROTEIN, SERUM 8.4 g/dL (6.4-8.2)
--- NOTE | 2017-07-24 07:40 | NUR ---
Patient in bed, SLEEPING . A/O x3. RLE elevated a pillow. Dressing on surgical wound clean, dry, intact, no discharges noted. Vitals signs NORMAL No signs of any acute respiratory distress. Placed call light in reach. Will continue to monitor the patient.
[2017-07-24] MEDS: FAMOTIDINE 20 MG TABLET PO SCH (08:03)
[2017-07-24] MEDS: LACTOBACILLUS RHAMNOSUS GG 1 EACH CAPSULE PO SCH (08:03)
[2017-07-24] MEDS: INSULIN REGULAR, HUMAN 300 UNIT/3 ML VIAL SQ PRN (11:03)
[2017-07-24 11:39] VITALS: BP 98/56
[2017-07-24 16:01] VITALS: BP 98/63
--- NOTE | 2017-07-24 18:55 | NUR ---
d/c rn report given to [facility] to leila menendez .d/c wong per md orders.pt refused to take his wound picture. made aware.
--- NOTE | 2017-07-24 19:10 | NUR ---
RECEIVED PT AWAKE, ALERT AND ORIENTED X4. PT AWARE TO BE DISCHARGE. PT SHOWS NO SIGNS OF DISTRESS. VITAL SIGNS STABLE. WAITING FOR [facility] TO COME TO TRANSFER PT TO [facility].
--- NOTE | 2017-07-24 20:00 | NUR ---
PT TAKEN DOWN VIA GURNEY. [facility] [address] TAKE THE PT TO [facility]. ALL BELONGINGS ACCOUNTED FOR AND SET WITH PT. DISCHARGE TEACHING DONE. PT VERBALIZED UNDERSTANDING. PT SHOWS NO SIGNS OF DISTRESS. PT VITAL SIGNS ARE STABLE. TAKE OFF THE ID BAND OF THE PT. DISCHARGE PROTOCOL FOLLOWED.
[2017-07-24] MEDS ORDERED: ONDANSETRON 4 MG/2 ML VIAL IV ONE (20:03)
[2017-07-24] MEDS ORDERED: PROPOFOL 200 MG/20 ML BOTTLE IV ONE (20:03)
[2017-07-24] MEDS ORDERED: LIDOCAINE-MPF 2% 5 ML VIAL MC ONE (20:03)
== END 2017-07-24 20:04 | DRG 710 ==
LOC: ER 16:00 → TELE 22:18 → CCU 23:06 → TELE 07-16 18:42 → MED 07-16 18:52
PROVIDERS: ADMIT Internal Medicine; ATTEND Internal Medicine
PROC: 0Y6M0Z0 Detachment at Right Foot, Complete, Open Approach (ICD-10-PCS; principal; 2017-07-16 11:27)
PROC: 0Y6H0Z2 Detachment at Right Lower Leg, Mid, Open Approach (ICD-10-PCS; 2017-07-20)
DX: A41.9 Sepsis, unspecified organism (principal); E43 Unspecified severe protein-calorie malnutrition; E87.2 Acidosis; E10.52 Type 1 diabetes mellitus with diabetic peripheral angiopathy with gangrene; A48.0 Gas gangrene; M86.171 Other acute osteomyelitis, right ankle and foot; L03.115 Cellulitis of right lower limb; E10.65 Type 1 diabetes mellitus with hyperglycemia; Z79.4 Long term (current) use of insulin; Z68.21 Body mass index [BMI] 21.0-21.9, adult; E10.42 Type 1 diabetes mellitus with diabetic polyneuropathy; E10.621 Type 1 diabetes mellitus with foot ulcer; L97.519 Non-pressure chronic ulcer of other part of right foot with unspecified severity; E10.69 Type 1 diabetes mellitus with other specified complication; Z91.19 Patient's noncompliance with other medical treatment and regimen; Z83.3 Family history of diabetes mellitus; Z79.899 Other long term (current) drug therapy; E78.5 Hyperlipidemia, unspecified; D63.8 Anemia in other chronic diseases classified elsewhere; I10 Essential (primary) hypertension; E87.8 Other disorders of electrolyte and fluid balance, not elsewhere classified; I77.6 Arteritis, unspecified; Z89.511 Acquired absence of right leg below knee; D47.3 Essential (hemorrhagic) thrombocythemia
CPT/HCPCS: 36415; 71045; 73630; 83605; 83735; 84100; 84443; 85018; 85025; 85651; 85730; 86140; 87040; 87070; 87086; 93005; 97116; 97530; A4217; A4649; A4663; J0692; J1100; J1815; J2250; J2270; J2405; J2543; J3010; J3370; J3480; J3490; J7030; J7040; J7042; J7060; J7120

== ENCOUNTER 2019-06-08 19:22 | Inpatient (IN) | payer OTHER ==
[~2019-06-08] VITALS: Ht 182.9 cm; Wt 85.5 kg
[~2019-06-08 19:22] MED LIST changes: +ACET325T53 PO; +ALOG25TA PO; +ASCO500T10 PO; +ATOR20TA PO; +BLOO-360 IN; +DEXT38GE12 PO; -FLUC100T PO; +GABA-534 PO; +GLUC1KIT IJ; -Glipizide PO; +INSU100I26 SQ; -Lisinopril PO; +METF-440 PO; +MULT-213 PO; -Metformin Hcl PO; +ONDA-104 PO; +POLY15DR31 EACHEYE
--- NOTE | 2019-06-08 19:50 | NUR ---
Dr. Santamaria at bedside for MSE
[2019-06-08] MEDS ORDERED: PIPERACILLIN SODIUM/TAZOBACTAM 3.375 G in IV DEXTROSE 5% 50 ML IV ONE (20:00)
[2019-06-08] MEDS ORDERED: VANCOMYCIN IV 1,000 MG in IV DEXTROSE 5% 250 ML IV ONE (20:00)
[2019-06-08] MEDS ORDERED: IV NORMAL SALINE 1000 ML BAG IV ONE ×2 (20:00→20:45)
[2019-06-08] MEDS ORDERED: MULT-225 PO (20:01)
[2019-06-08] MEDS ORDERED: LISI-607 PO (20:01)
[2019-06-08] MEDS ORDERED: ACET1TAB23 PO (20:01)
[2019-06-08] MEDS ORDERED: GABA-536 PO (20:01)
[2019-06-08] MEDS ORDERED: METF-441 PO (20:01)
[2019-06-08] MEDS ORDERED: BISA-79 PO (20:01)
[2019-06-08] MEDS ORDERED: HYDR-4384 PO (20:01)
[2019-06-08] MEDS ORDERED: LACT100C2 PO (20:01)
[2019-06-08] MEDS ORDERED: CALC500T88 PO (20:01)
[2019-06-08] MEDS ORDERED: ZINC220T4 PO (20:01)
[2019-06-08 20:16] LABS: BASOPHILS # (AUTO) 0.1 K/uL (0.0-8.0); BASOPHILS % (AUTO) 0.6 % (0.0-2.0); EOSINOPHILS # (AUTO) 0.1 K/uL (0.0-0.7); EOSINOPHILS % (AUTO) 0.6 % (0.0-7.0); HEMATOCRIT 36.7 % (36.7-47.1); HEMOGLOBIN 12.3 g/dL (12.5-16.3); LYMPHOCYTES # (AUTO) 1.1 K/uL (20.0-40.0); LYMPHOCYTES % (AUTO) 11.3 % (20.5-51.5); MEAN CORPUSCULAR HEMOGLOBIN 27.6 uug (23.8-33.4); MEAN CORPUSCULAR HGB CONC 33 g/dL (32.5-36.3); MEAN CORPUSCULAR VOLUME 82.6 fL (73.0-96.2); MONOCYTES # (AUTO) 0.7 K/uL (2.0-10.0); MONOCYTES % (AUTO) 7.1 % (0.0-11.0); NEUTROPHILS # (AUTO) 7.8 K/uL (1.8-8.9); NEUTROPHILS % (AUTO) 80.4 % (38.5-71.5); PLATELET COUNT (AUTO) 400 K/uL (152-348); RED BLOOD CELL COUNT(AUTO) 4.44 MIL/uL (4.06-5.63); WHITE BLOOD COUNT (AUTO) 9.7 K/uL (3.6-10.2)
[2019-06-08 20:25] LABS: POTASSIUM 4.6 mmol/L (3.5-5.1)
--- NOTE | 2019-06-08 20:27 | NUR ---
Flu and MRSA swab done and sent to lab
[2019-06-08] MEDS ORDERED: PIPERACILLIN/TAZOBACTAM/D5W 50 ML IV ONE (20:30)
[2019-06-08 20:39] LABS: BILIRUBIN,DIRECT 0.1 mg/dL (0.0-0.2); BILIRUBIN,TOTAL 0.3 mg/dL (0.2-1.0); TOTAL PROTEIN, SERUM 9.2 g/dL (6.4-8.2)
--- NOTE | 2019-06-08 21:00 | NUR ---
called [facility] and spoke with Sylvia to give clinicals for patient. Nurse not available at this time. per Sylvia will call back within 30 mins
--- NOTE | 2019-06-08 21:03 | NUR ---
Dr. Santamaria on panel call with Alexis Da Silva DNP.
[2019-06-08] MEDS ORDERED: VANCOMYCIN IV 200 ML ONE (21:15)
[2019-06-08] MEDS ORDERED: DEXTROSE 50% 50 ML DISP.SYRIN IV PRN (21:45)
[2019-06-08] MEDS ORDERED: ACETAMINOPHEN 325 MG TABLET PO PRN (21:45)
[2019-06-08] MEDS ORDERED: ONDANSETRON 4 MG/2 ML VIAL IV PRN (21:45)
[2019-06-08] MEDS ORDERED: MAGNESIUM HYDROXIDE 30 ML LIQUID UDC PO PRN (21:45)
[2019-06-08] MEDS ORDERED: Z GUARD REMEDY PASTE 57 GM TUBE TOP PRN (21:45)
--- NOTE | 2019-06-08 21:58 | NUR ---
Pt. admitted to Telemetry , under care of Alexis Da Silva CONFERENCE AND EVENT ORGANISER Belongs List completed
--- NOTE | 2019-06-08 22:15 | NUR ---
Admitted a 44 years old male with Diagnosis of Cellulitis of the right BKA. Patient AAOX4. In no acute distress. Complained of pain on right BKA area 7/10, will provide pain medication per order. Patient reported pain scale 6/10 and below tolerable. Right BKA with open wounds and moderate amount of serosanguineous drainage. Cleanse affected area with saline. pat dry, cover with dry dressing and wrap with kerlix. In no acute distress. Denies any SOB. IV site on left FA intact and patent. Vanco infusing during admission from ER. NSR on tele at 80/min. Routine admission care done. Plan of care initiated. Safety measure initiated and call tavarez within reached. Continue to monitor.
[2019-06-08 22:30] VITALS: BP 105/71
--- NOTE | 2019-06-08 22:30 | NUR ---
psychiatric technician Ebony reported Lactic Acid of 2.2. Patient lactic acid initially was 4.5. Lactic acid trending down.
[2019-06-08] MEDS ORDERED: CEFEPIME HCL 1 G VIAL ONE (22:48)
[2019-06-08] MEDS: MORPHINE SULFATE 2 MG/1 ML DISP.SYRIN IV PRN (23:05)
[2019-06-08] MEDS: ENOXAPARIN SODIUM 40 MG/0.4 ML DISP.SYRIN SQ SCH (23:05)
[2019-06-08] MEDS: IV NS 1000 ML 1,000 ML IV PRN (23:24)
[2019-06-09] MEDS: CEFEPIME HCL 1 G in IV DEXTROSE 5% 50 ML IV SCH ×4 (00:04→21:53)
[2019-06-09 00:20] VITALS: BP 101/57
[2019-06-09 05:00] VITALS: BP 101/56
--- NOTE | 2019-06-09 05:16 | NUR ---
Patient remains AAOX4. In no acute distress. Morphine 4mg effective for pain on right BKA. Right BKA with dressing remains intact and dry. Denies any SOB. IV site on left FA intact and patent. IVF infusing. No adverse effect noted from IV ABX. NSR on tele at 74/min. Needs assessed and attended to. Safety measure maintained and call tavarez within reached.
[2019-06-09] MEDS: PANTOPRAZOLE SODIUM 40 MG TABLET.DR PO SCH (06:08)
[2019-06-09] MEDS: MORPHINE SULFATE 2 MG/1 ML DISP.SYRIN IV PRN ×2 (06:17→06:52)
[2019-06-09] MEDS: BLOOD SUGAR DIAGNOSTIC 1 EACH STRIP VI SCH ×4 (06:32→20:39)
[2019-06-09 06:53] LABS: BASOPHILS # (AUTO) 0.1 K/uL (0.0-8.0); EOSINOPHILS # (AUTO) 0.3 K/uL (0.0-0.7)
[2019-06-09 07:10] LABS: BASOPHILS % (AUTO) 0.7 % (0.0-2.0); LYMPHOCYTES # (AUTO) 1.7 K/uL (20.0-40.0); LYMPHOCYTES % (AUTO) 19.7 % (20.5-51.5); MEAN CORPUSCULAR HEMOGLOBIN 27.7 uug (23.8-33.4); MEAN CORPUSCULAR HGB CONC 34 g/dL (32.5-36.3); MEAN CORPUSCULAR VOLUME 82.1 fL (73.0-96.2); MONOCYTES # (AUTO) 0.9 K/uL (2.0-10.0); MONOCYTES % (AUTO) 10.2 % (0.0-11.0); NEUTROPHILS # (AUTO) 5.6 K/uL (1.8-8.9); NEUTROPHILS % (AUTO) 66.4 % (38.5-71.5); PLATELET COUNT (AUTO) 357 K/uL (152-348); RED BLOOD CELL COUNT(AUTO) 3.72 MIL/uL (4.06-5.63); WHITE BLOOD COUNT (AUTO) 8.4 K/uL (3.6-10.2)
[2019-06-09 07:13] LABS: BILIRUBIN,TOTAL 0.2 mg/dL (0.2-1.0); CREATININE 0.8 mg/dL (0.6-1.3); HEMOGLOBIN 10.3 g/dL (12.5-16.3); MAGNESIUM 1.6 mg/dL (1.8-2.4); PHOSPHOROUS 2.9 mg/dL (2.5-4.9); POTASSIUM 3.9 mmol/L (3.5-5.1); TOTAL PROTEIN, SERUM 7.1 g/dL (6.4-8.2)
[2019-06-09 07:14] LABS: HEMATOCRIT 30.6 % (36.7-47.1)
--- NOTE | 2019-06-09 07:35 | NUR ---
PATIENT IS AWAKE ALERT AND ORIENTED STATED FEELS STUFFY AT THIS TIME BUT NO COUGH AFEBRILE WILL OBSERVE HE HAS IVF OF NS AT 75 ML/HR WITH NO S/S OF INFILTERATION ON HIS LEFT FOREARM CALL LIGHTS AND HIS PERSONAL BELONGINGS ARE WITHIN EASY REACH WILL CONTINUE TO OBSERVE.
[2019-06-09] MEDS: INSULIN REGULAR, HUMAN 300 UNIT/3 ML VIAL SQ PRN ×4 (08:11→20:42)
--- NOTE | 2019-06-09 08:37 | NUR ---
Clinical pharmacy note-Vancomycin dosing per pharmacy Subjective: To start Vancomycin dosing on this patient for right leg cellulitis Objective: BUN/ SCr 16/0.8 WBC 8.4 Temp 98.7 Ht 182.88cm Wt 85.531kg Assessment/Plan: Patient had 1 gram last night at 2122. Will start Vancomycin 1500mg IV every 9 hrs(first dose today at 1000) and draw trough by 4th dose(not ordered yet) for expected trough around 15. Will monitor daily. Addendum: 06/09/19 at 1150 by MANNIE SYED VANCOMYCIN TROUGH IS ON ORDER FOR TOMORROW AT 1230
[2019-06-09] MEDS: VANCOMYCIN IV 1,500 MG in IV NORMAL SALINE 500 ML IV SCH ×2 (09:32→18:05)
[2019-06-09 10:07] LABS: THYROID STIMULATING HORMONE 3.048 mIU/mL (0.358-3.740)
--- NOTE | 2019-06-09 10:58 | NUR ---
MAG LEVEL IS 1.6 TODAY AND PATIENT IS REQUESTING FOR GABAPENTIN WHICH IS PART OF HIS HOME MEDICATIONS SPOKE WITH LEW SOUZA STATED OKAY WILL SEE PATIENT NO NEW ORDERS AT THIS TIME
[2019-06-09 11:23] VITALS: BP 103/57
[2019-06-09] MEDS: LISINOPRIL 5 MG TABLET PO SCH (11:30)
[2019-06-09] MEDS ORDERED: MAGNESIUM OXIDE 400 MG TABLET PO ONE (11:30)
[2019-06-09] MEDS ORDERED: POLYVINYL ALCOHOL OPHT DROPS 15 ML BOTTLE EACHEYE PRN (11:30)
--- NOTE | 2019-06-09 11:46 | NUR ---
PATIENT SEEN AND EXAMINED BY LEW SOUZA WITH NEW ORDERS AND NOTED
[2019-06-09] MEDS: ASCORBIC ACID 500 MG TABLET PO SCH ×2 (11:58→16:53)
[2019-06-09] MEDS: MULTIVITAMINS,THERAPEUTIC TABLET PO SCH (11:58)
[2019-06-09] MEDS: CULTURELLE CAPSULE PO SCH ×2 (11:58→20:30)
[2019-06-09] MEDS: GABAPENTIN 400 MG CAPSULE PO SCH ×2 (11:58→16:53)
[2019-06-09] MEDS: HYDROCODONE/APAP 5-325MG TABLET PO PRN (11:59)
[2019-06-09] MEDS: ZINC SULFATE 220 MG CAPSULE PO SCH (11:59)
--- NOTE | 2019-06-09 12:45 | NUR ---
DR KEIRY MALAGON HERE TO SEE PATIENT WITH ORDER FOR CONSCENT FOR DEBRIDEMENT OF THE RIGHT BKA PATIENT SIGNED CONSCENT SIGNED BY PATIENT
--- NOTE | 2019-06-09 13:27 | NUR ---
WOUND DEBRIDEMENT COMPLETED ORDERED WITH NEW TREATMENT ORDERS AND PATIENT TOLERATED PROCEDURE WELL.
[2019-06-09] MEDS: SODIUM HYPOCHLORITE 0.25% 480 ML BOTTLE TOP SCH (13:30)
--- NOTE | 2019-06-09 13:39 | NUR ---
WOUND CARE CONSULT: PT PRESENTS WITH DRY DRESSING TO RT BELOW KNEE AMPUTATION STUMP WOUND WHICH WAS JUST DEBRIDED BY DR HOLT. SACRAL AREA HAS A SCAR, PRESENT ON ADMISSION. PT IS INDEPENDENT WITH BED MOBILITY. PT IS CONTINENT. DEFER TO DPM FOR LEG WOUND. WILL SEE PRN. CURRENT SETH SCORE IS 20.
[2019-06-09 15:05] LABS: *BILIRUBIN,URIN NEGATIVE (NEGATIVE); *BLOOD, URINE NEGATIVE (NEGATIVE); *CLARITY,URINE CLEAR (CLEAR); *COLOR,URINE YELLOW (YELLOW); *KETONES,URINE NEGATIVE (NEGATIVE); LEUKOCYTE ESTERASE ,URINE NEGATIVE (NEGATIVE); NITRITE, URINE NEGATIVE (NEGATIVE); UGLUCOSE NEGATIVE (NEGATIVE)
[2019-06-09 15:10] LABS: BACTERIA,URINE NONE SEEN /HPF (NONE SEEN); RBC,URINE 0-3 /HPF (0-3); SQUAMOUS EPITHELIAL CELL,UR FEW /HPF (NONE SEEN); WBC,URINE 0-3 /HPF (0-3)
[2019-06-09 15:22] VITALS: BP 117/64
--- NOTE | 2019-06-09 17:20 | NUR ---
PATIENT REQUESTED IVF FLUID TO BE TURNED OFF TWO TIMES THIS SHIFT CURRENTLY OFF STATED NEED SOME REST PATIENT EDUCATED ON NEED TO HAVE IVF CONTINUOS ORDERED FOR HYDRATION EXPRESSED UNDERSTANDING.
[2019-06-09] MEDS: METFORMIN HCL 850 MG TABLET PO SCH (17:31)
[2019-06-09] MEDS: MORPHINE SULFATE 4 MG/1 ML DISP.SYRIN IV PRN ×2 (17:35→22:30)
--- NOTE | 2019-06-09 19:15 | NUR ---
RECEIVED PATIENT AWAKE IN BED. AO X 4. IV IN LEFT FOREARM FLUSHING, PATENT, AND INTACT WITH NORMAL SALINE RUNNING AT 75ML/HR. NO COMPLAINTS OF PAIN AT THIS TIME. NO SHORTNESS OF BREATH NOTED. SAFETY/ FALL PRECAUTIONS IN PLACE. CALL LIGHT WITHIN REACH. WILL CONTINUE TO MONITOR.
[2019-06-09] MEDS: ATORVASTATIN 20 MG TABLET PO SCH (20:30)
[2019-06-09] MEDS: ENOXAPARIN SODIUM 40 MG/0.4 ML DISP.SYRIN SQ SCH (20:31)
[2019-06-09] MEDS: INSULIN REGULAR, HUMAN 300 UNITS/3 ML VIAL SQ PRN (20:46)
[2019-06-09] MEDS: IV NS 1000 ML 1,000 ML IV PRN (22:34)
[2019-06-10] MEDS: VANCOMYCIN IV 1,500 MG in IV NORMAL SALINE 500 ML IV SCH ×2 (03:19→16:46)
[2019-06-10] MEDS: CEFEPIME HCL 1 G in IV DEXTROSE 5% 50 ML IV SCH ×3 (05:36→21:54)
[2019-06-10] MEDS: MORPHINE SULFATE 4 MG/1 ML DISP.SYRIN IV PRN ×2 (05:50→20:40)
[2019-06-10 06:00] VITALS: BP 115/64
--- NOTE | 2019-06-10 06:11 | NUR ---
PATIENT SLEPT WELL THROUGHOUT THE NIGHT. NO ACUTE CHANGE IN PATIENT CONDITION. VITAL SIGNS STABLE. MANAGED PAIN APPROPRIATELY WITH PRN PAIN MEDICATIONS. DRESSING CHANGE COMPLETED. WOUND KEPT CLEAN AND DRY. OFFLOADED RIGHT LEG. PATIENT TOLERATED MEDICATIONS. WILL ENDORSE TO ONCOMING SHIFT.
[2019-06-10] MEDS: PANTOPRAZOLE SODIUM 40 MG TABLET.DR PO SCH (06:18)
[2019-06-10 06:36] LABS: BASOPHILS # (AUTO) 0.1 K/uL (0.0-8.0); BASOPHILS % (AUTO) 0.8 % (0.0-2.0); EOSINOPHILS # (AUTO) 0.2 K/uL (0.0-0.7); EOSINOPHILS % (AUTO) 3.3 % (0.0-7.0); HEMATOCRIT 30.5 % (36.7-47.1); HEMOGLOBIN 10.2 g/dL (12.5-16.3); LYMPHOCYTES # (AUTO) 1.7 K/uL (20.0-40.0); LYMPHOCYTES % (AUTO) 24.1 % (20.5-51.5); MEAN CORPUSCULAR HEMOGLOBIN 27.3 uug (23.8-33.4); MEAN CORPUSCULAR HGB CONC 33 g/dL (32.5-36.3); MEAN CORPUSCULAR VOLUME 81.8 fL (73.0-96.2); MONOCYTES # (AUTO) 0.6 K/uL (2.0-10.0); MONOCYTES % (AUTO) 8.1 % (0.0-11.0); NEUTROPHILS # (AUTO) 4.4 K/uL (1.8-8.9); NEUTROPHILS % (AUTO) 63.7 % (38.5-71.5); PLATELET COUNT (AUTO) 416 K/uL (152-348); RED BLOOD CELL COUNT(AUTO) 3.74 MIL/uL (4.06-5.63); WHITE BLOOD COUNT (AUTO) 6.9 K/uL (3.6-10.2)
[2019-06-10] MEDS: BLOOD SUGAR DIAGNOSTIC 1 EACH STRIP VI SCH ×4 (06:41→20:38)
[2019-06-10 06:48] LABS: CREATININE 0.7 mg/dL (0.6-1.3); MAGNESIUM 1.5 mg/dL (1.8-2.4); PHOSPHOROUS 2.8 mg/dL (2.5-4.9); POTASSIUM 3.9 mmol/L (3.5-5.1)
--- NOTE | 2019-06-10 07:59 | NUR ---
PATIENT IS AWAKE ALERT AND ORIENTED. NO ACUTE DISTRESS OR SOB NOTED. NO COUGH AFEBRILE WILL OBSERVE. HE HAS IVF OF NS AT 75 ML/HR WITH NO S/S OF INFILTRATION OR REDNESS ON HIS LEFT FOREARM. CALL LIGHT AND HIS PERSONAL BELONGINGS ARE WITHIN EASY REACH WILL CONTINUE TO OBSERVE AND MONITOR FOR SAFETY AND COMFORT.
[2019-06-10] MEDS: INSULIN REGULAR, HUMAN 300 UNIT/3 ML VIAL SQ PRN ×3 (08:14→16:55)
[2019-06-10] MEDS: METFORMIN HCL 850 MG TABLET PO SCH (08:22)
[2019-06-10] MEDS: CULTURELLE CAPSULE PO SCH ×2 (08:23→20:34)
[2019-06-10] MEDS: LISINOPRIL 5 MG TABLET PO SCH (08:23)
[2019-06-10] MEDS: ASCORBIC ACID 500 MG TABLET PO SCH ×4 (08:23→18:12)
[2019-06-10] MEDS: MULTIVITAMINS,THERAPEUTIC TABLET PO SCH (08:23)
[2019-06-10] MEDS: LINAGLIPTIN 5 MG TABLET PO SCH (08:23)
[2019-06-10] MEDS: GABAPENTIN 400 MG CAPSULE PO SCH ×5 (08:24→18:11)
[2019-06-10] MEDS: ZINC SULFATE 220 MG CAPSULE PO SCH (08:24)
[2019-06-10] MEDS ORDERED: ALOGLIPTIN BENZOATE 25 MG PO SCH (09:00)
[2019-06-10] MEDS: SODIUM HYPOCHLORITE 0.25% 480 ML BOTTLE TOP SCH (09:00)
[2019-06-10] MEDS ORDERED: MAGNESIUM OXIDE 400 MG TABLET PO ONE (10:15)
--- NOTE | 2019-06-10 10:46 | NUR ---
TEXTED DR. PERRY FOR MRI APPROVAL.
[2019-06-10] MEDS ORDERED: ALPRAZOLAM 0.5 MG TABLET PO ONE (11:15)
[2019-06-10 12:06] VITALS: BP 98/54
--- NOTE | 2019-06-10 13:30 | NUR ---
PT TRANSPORTED TO [facility] FOR MRI. NO ACUTE DISTRESS OR SOB NOTED. WOUND CARE TO BE DONE AT PATIENTS RETIURN DUE TO PROCEDURE.
--- NOTE | 2019-06-10 13:32 | NUR ---
Clinical pharmacy note-Vancomycin dosing per pharmacy Subjective: To continue Vancomycin dosing on this patient for right leg cellulitis Objective: BUN/ SCr 12/0.7 WBC 6.9 Temp 98.2 Vanco trough level on 06/10 at 1230: 11.5 Ht 182.88cm Wt 85.531kg Assessment/Plan: Since vanco trough level is 11.5 mcg/ml, will change dose to Vancomycin 1500mg IV every 8 hrs(first dose today at 1400) and draw trough by 4th dose(ordered for 06/11 at 1400) for expected trough around 15 mcg/ml. Will monitor daily. Addendum: 06/10/19 at 1542 by BRYON SYED Per Rn, patient went for procedure. 1st dose could not be given at 1400. re-scheduled 1ts dose for 1700 & cancelled vanco trough for 06/11 at 1330
[2019-06-10] MEDS ORDERED: VANCOMYCIN IV 1,500 MG in IV NORMAL SALINE 500 ML IV SCH (14:00)
--- NOTE | 2019-06-10 15:30 | NUR ---
PT RETURNED FROM [facility]. NO ACUTE DISTRESS OR SOB NOTED. PT REFUSES WOUND CARE TX AT THIS TIME. HE WANTS TO SLEEP.
[2019-06-10 15:50] VITALS: BP 109/70
--- NOTE | 2019-06-10 18:00 | NUR ---
PT REFUSES WOUND CARE TX AT THIS TIME. PT REFUSED 1700 MEDS WELL HE WISHES TO BE LEFT ALONE TO SLEEP. NO ACUTE DISTRESS NOTED, NO SOB NOTED. BED LOW AND LOCKED. CALL LIGHT WITHIN REACH. IV ABX INFUSING. WILL GIVE REPORT ACCORDINGLY.
[2019-06-10 20:14] VITALS: BP 110/57
[2019-06-10] MEDS: ENOXAPARIN SODIUM 40 MG/0.4 ML DISP.SYRIN SQ SCH (20:32)
[2019-06-10] MEDS: ATORVASTATIN 20 MG TABLET PO SCH (20:34)
[2019-06-10] MEDS: INSULIN REGULAR, HUMAN 300 UNITS/3 ML VIAL SQ PRN (20:39)
[2019-06-10] MEDS: IV NS 1000 ML 1,000 ML IV PRN (21:54)
[2019-06-11] MEDS: VANCOMYCIN IV 1,500 MG in IV NORMAL SALINE 500 ML IV SCH ×2 (01:22→11:25)
[2019-06-11] MEDS: MORPHINE SULFATE 4 MG/1 ML DISP.SYRIN IV PRN ×2 (02:41→20:48)
[2019-06-11 04:44] VITALS: BP 118/71
[2019-06-11] MEDS: CEFEPIME HCL 1 G in IV DEXTROSE 5% 50 ML IV SCH ×2 (05:28→14:04)
[2019-06-11] MEDS: PANTOPRAZOLE SODIUM 40 MG TABLET.DR PO SCH (06:15)
[2019-06-11 06:28] LABS: BASOPHILS # (AUTO) 0.1 K/uL (0.0-8.0); BASOPHILS % (AUTO) 1.2 % (0.0-2.0); CREATININE 0.7 mg/dL (0.6-1.3); EOSINOPHILS # (AUTO) 0.2 K/uL (0.0-0.7); EOSINOPHILS % (AUTO) 3.2 % (0.0-7.0); HEMATOCRIT 31.4 % (36.7-47.1); HEMOGLOBIN 10.5 g/dL (12.5-16.3); LYMPHOCYTES # (AUTO) 1.9 K/uL (20.0-40.0); LYMPHOCYTES % (AUTO) 32.4 % (20.5-51.5); MAGNESIUM 1.6 mg/dL (1.8-2.4); MEAN CORPUSCULAR HEMOGLOBIN 27.3 uug (23.8-33.4); MEAN CORPUSCULAR HGB CONC 33 g/dL (32.5-36.3); MEAN CORPUSCULAR VOLUME 81.7 fL (73.0-96.2); MONOCYTES # (AUTO) 0.5 K/uL (2.0-10.0); NEUTROPHILS # (AUTO) 3.2 K/uL (1.8-8.9); NEUTROPHILS % (AUTO) 55.2 % (38.5-71.5); PHOSPHOROUS 3.6 mg/dL (2.5-4.9); PLATELET COUNT (AUTO) 461 K/uL (152-348); RED BLOOD CELL COUNT(AUTO) 3.85 MIL/uL (4.06-5.63); WHITE BLOOD COUNT (AUTO) 5.8 K/uL (3.6-10.2)
[2019-06-11] MEDS: BLOOD SUGAR DIAGNOSTIC 1 EACH STRIP VI SCH ×4 (06:32→21:06)
--- NOTE | 2019-06-11 06:38 | NUR ---
Patient slept well. 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 c/o pain on R BKA, PRN Morphine 4mg IV given x 2 this shift. All needs attended. Will endorse accordingly
[2019-06-11] MEDS: INSULIN REGULAR, HUMAN 300 UNIT/3 ML VIAL SQ PRN ×3 (08:22→21:10)
[2019-06-11] MEDS: LISINOPRIL 5 MG TABLET PO SCH (09:00)
--- NOTE | 2019-06-11 09:00 | NUR ---
IV INFILTRATED. PHARMACY AWARE WILL NOT BE ABLE TO INFUSE VENCOCIN UNTIL NEW LINE INSERTED.
[2019-06-11] MEDS: CULTURELLE CAPSULE PO SCH ×2 (09:41→20:49)
[2019-06-11] MEDS: LINAGLIPTIN 5 MG TABLET PO SCH (09:42)
[2019-06-11] MEDS: ZINC SULFATE 220 MG CAPSULE PO SCH (09:42)
[2019-06-11] MEDS: MULTIVITAMINS,THERAPEUTIC TABLET PO SCH (09:42)
[2019-06-11] MEDS: SODIUM HYPOCHLORITE 0.25% 480 ML BOTTLE TOP SCH (09:51)
--- NOTE | 2019-06-11 11:28 | NUR ---
PICC LINE INSERTED IN HECTOR 42CM. 0900 VANCOCIN STARTED AT THIS TIME. PHARMACY AWARE.
[2019-06-11 11:30] VITALS: BP 100/64
[2019-06-11] MEDS: HYDROCODONE/APAP 5-325MG TABLET PO PRN (11:32)
--- NOTE | 2019-06-11 12:34 | NUR ---
Clinical pharmacy note-Vancomycin dosing per pharmacy Subjective: To continue Vancomycin dosing on this patient for right leg cellulitis Objective: BUN/ SCr 12/0.7 WBC 5.8 Temp 98.6 Vanco trough level on 06/10 at 1230: 11.5 Ht 182.88cm Wt 85.531kg Assessment/Plan: Since PICC line has to be placed(can't use current IV access), 3rd dose of Vancomycin wasn't given on time(scheduled at 0900 but give at 1125). Rescheduled vancomycin to give next dose at 1900(2nd dose) and ordered trough by 4th dose for tomorrow at 1030 for expected trough around 15.
[2019-06-11] MEDS: GABAPENTIN 400 MG CAPSULE PO SCH ×2 (13:35→16:37)
--- NOTE | 2019-06-11 14:00 | NUR ---
WOUND CARE DONE BY W[employer]LESS RETAIL MANAGER. PICC LINE PLACED IN HECTOR 42CM. NO ACUTE DISTRESS R SOB NOTED. WILL CONTINUE TO MONITOR FOR SAFETY AND COMFORT.
[2019-06-11] MEDS: MAGNESIUM SULFATE/D5W 100 ML IV SCH ×2 (15:13→16:29)
--- NOTE | 2019-06-11 16:00 | NUR ---
PT REFUSES REMOVAL OF HECTOR IV LINE AT THIS TIME. SATES HE WANTS TO BE LEFT ALONE AND SLEEP.
[2019-06-11] MEDS: ASCORBIC ACID 500 MG TABLET PO SCH (16:37)
--- NOTE | 2019-06-11 16:38 | NUR ---
PT REFUSES PM MEDS. PT REFUSES ACCU CHECK AT THIS TIME.
[2019-06-11] MEDS ORDERED: METFORMIN HCL 850 MG TABLET PO SCH (18:00)
--- NOTE | 2019-06-11 18:00 | NUR ---
PT REFUSES HECTOR IV REMOVAL AT THIS TIME. PT REFUSED 1700 MEDS WELL HE WISHES TO BE LEFT ALONE TO SLEEP. NO ACUTE DISTRESS NOTED, NO SOB NOTED. BED LOW AND LOCKED. CALL LIGHT WITHIN REACH. IV ABX INFUSING. WILL GIVE REPORT ACCORDINGLY.
[2019-06-11] MEDS ORDERED: VANCOMYCIN IV 1,500 MG in IV NORMAL SALINE 500 ML IV SCH (19:00)
[2019-06-11 20:00] VITALS: BP 110/70
--- NOTE | 2019-06-11 20:00 | NUR ---
Patient received into care, laying in bed, watching television. Patient is alert/oriented x4 and has no complaints of pain or discomfort at this time. IV Vancomycin is infusing via HECTOR PICC line. All safety and fall precaution measures are in place. Call light and personal items are within reach at all times. Will continue to monitor and assess.
[2019-06-11] MEDS: CEFTRIAXONE 2 G in IV DEXTROSE 5% 100 ML IV SCH (20:12)
[2019-06-11] MEDS: ENOXAPARIN SODIUM 40 MG/0.4 ML DISP.SYRIN SQ SCH (20:44)
[2019-06-11] MEDS: ATORVASTATIN 20 MG TABLET PO SCH (20:48)
[2019-06-12] MEDS: IV NS 1000 ML 1,000 ML IV PRN (00:22)
[2019-06-12 04:00] VITALS: BP 109/67
--- NOTE | 2019-06-12 06:00 | NUR ---
Patient slept throughout night with complaints of pain addressed with prescribed analgesics. All nursing needs met promptly and patient is warm, dry, and comfortable. Safety and fall precaution measures remain in place. Call light and personal items remain within reach at all times.
[2019-06-12] MEDS: PANTOPRAZOLE SODIUM 40 MG TABLET.DR PO SCH (06:12)
[2019-06-12] MEDS: BLOOD SUGAR DIAGNOSTIC 1 EACH STRIP VI SCH ×3 (06:16→17:10)
[2019-06-12] MEDS: MORPHINE SULFATE 4 MG/1 ML DISP.SYRIN IV PRN ×2 (06:19→11:02)
[2019-06-12 07:19] LABS: BASOPHILS # (AUTO) 0.1 K/uL (0.0-8.0); BASOPHILS % (AUTO) 0.8 % (0.0-2.0); EOSINOPHILS # (AUTO) 0.2 K/uL (0.0-0.7); EOSINOPHILS % (AUTO) 2.4 % (0.0-7.0); HEMATOCRIT 32.9 % (36.7-47.1); HEMOGLOBIN 10.9 g/dL (12.5-16.3); LYMPHOCYTES # (AUTO) 2.1 K/uL (20.0-40.0); LYMPHOCYTES % (AUTO) 27.6 % (20.5-51.5); MEAN CORPUSCULAR HEMOGLOBIN 27.1 uug (23.8-33.4); MEAN CORPUSCULAR HGB CONC 33 g/dL (32.5-36.3); MONOCYTES # (AUTO) 0.6 K/uL (2.0-10.0); MONOCYTES % (AUTO) 8.2 % (0.0-11.0); NEUTROPHILS # (AUTO) 4.7 K/uL (1.8-8.9); PLATELET COUNT (AUTO) 478 K/uL (152-348); RED BLOOD CELL COUNT(AUTO) 4.01 MIL/uL (4.06-5.63); WHITE BLOOD COUNT (AUTO) 7.7 K/uL (3.6-10.2)
[2019-06-12 08:10] LABS: CREATININE 0.8 mg/dL (0.6-1.3); MAGNESIUM 1.7 mg/dL (1.8-2.4); PHOSPHOROUS 3.8 mg/dL (2.5-4.9); POTASSIUM 4.5 mmol/L (3.5-5.1)
[2019-06-12] MEDS: ZINC SULFATE 220 MG CAPSULE PO SCH (08:12)
[2019-06-12] MEDS: GABAPENTIN 400 MG CAPSULE PO SCH ×3 (08:12→17:14)
[2019-06-12] MEDS: ASCORBIC ACID 500 MG TABLET PO SCH ×2 (08:12→17:14)
[2019-06-12] MEDS: CULTURELLE CAPSULE PO SCH (08:12)
[2019-06-12] MEDS: LINAGLIPTIN 5 MG TABLET PO SCH (08:12)
[2019-06-12] MEDS: MULTIVITAMINS,THERAPEUTIC TABLET PO SCH (08:13)
[2019-06-12] MEDS: LISINOPRIL 5 MG TABLET PO SCH (08:13)
--- NOTE | 2019-06-12 08:19 | NUR ---
asleep when waken up by NA, furious. " just want to sleep, leave me alone"
[2019-06-12] MEDS: SODIUM HYPOCHLORITE 0.25% 480 ML BOTTLE TOP SCH (09:03)
[2019-06-12] MEDS: INSULIN REGULAR, HUMAN 300 UNIT/3 ML VIAL SQ PRN ×2 (11:06→17:17)
--- NOTE | 2019-06-12 11:26 | NUR ---
woke self up, ate 100% breakfast, can be hostile at times. Mother at bedside, wants to know the patient's status, referred her to the CLERICAL SECRETARY on rounds today. complained of pain on R stump 11/12, MS04 4mg ivp given. BS at this time 145, got covered with R insulin prior to lunch Will monitor the pain.
[2019-06-12 11:50] VITALS: BP 134/87
[2019-06-12] MEDS ORDERED: POVI3780 TP (12:49)
[2019-06-12] MEDS ORDERED: CEFT1VIA15 IV (12:49)
[2019-06-12 15:35] VITALS: BP 107/73
[2019-06-12] MEDS: MAGNESIUM SULFATE/D5W 100 ML IV SCH ×2 (17:10→18:16)
--- NOTE | 2019-06-12 17:30 | NUR ---
MED WITH MORPHINE 4MG IV FOR C/O SEVERE PAIN RIGHT LEG WITH GREAT EFFECT AFTER 40 MINS. MED WAS SCANNED PRIOR TO ADMINISTERING, HOWEVER COMPUTER MALFUNCTIONED.
[2019-06-12] MEDS ORDERED: METFORMIN HCL 850 MG TABLET PO SCH (18:00)
[2019-06-12] MEDS: CEFTRIAXONE 2 G in IV DEXTROSE 5% 100 ML IV SCH (18:19)
--- NOTE | 2019-06-12 19:40 | NUR ---
[facility]. [place] given. discharged by ambulance.
== END 2019-06-12 19:15 | DRG 349 ==
LOC: ER 19:24 → TELE3 22:04 → MEDSURG3 06-09 18:05
PROVIDERS: ADMIT Hospitalist; ATTEND Hospitalist
PROC: 0JBN0ZZ Excision of Right Lower Leg Subcutaneous Tissue and Fascia, Open Approach (ICD-10-PCS; principal; 2019-06-09)
PROC: 02HV33Z Insertion of Infusion Device into Superior Vena Cava, Percutaneous Approach (ICD-10-PCS; 2019-06-11)
PROC: B548ZZA Ultrasonography of Superior Vena Cava, Guidance (ICD-10-PCS; 2019-06-11)
DX: T87.43 Infection of amputation stump, right lower extremity (principal); A41.9 Sepsis, unspecified organism; E43 Unspecified severe protein-calorie malnutrition; E11.40 Type 2 diabetes mellitus with diabetic neuropathy, unspecified; M86.161 Other acute osteomyelitis, right tibia and fibula; L03.115 Cellulitis of right lower limb; E83.42 Hypomagnesemia; E11.622 Type 2 diabetes mellitus with other skin ulcer; E11.65 Type 2 diabetes mellitus with hyperglycemia; E87.1 Hypo-osmolality and hyponatremia; Z89.511 Acquired absence of right leg below knee; E78.5 Hyperlipidemia, unspecified; D63.8 Anemia in other chronic diseases classified elsewhere; E11.69 Type 2 diabetes mellitus with other specified complication; B95.1 Streptococcus, group B, as the cause of diseases classified elsewhere; Z79.4 Long term (current) use of insulin; L97.818 Non-pressure chronic ulcer of other part of right lower leg with other specified severity; I10 Essential (primary) hypertension; Z83.3 Family history of diabetes mellitus; Z79.899 Other long term (current) drug therapy
CPT/HCPCS: 36415; 36569; 70030-TC; 71045; 73560; 73723; 83605; 83690; 83735; 84100; 84443; 85025; 85730; 87040; 87070; 87077; 87400; 93005; A4217; A4663; G0378; J0692; J0696; J1650; J1815; J2270; J2543; J3370; J3475; J3490; J7030; J7040; J7060